=== PATIENT | female | born 1965 | race Caucasian/White ===

== ENCOUNTER → 2016-09-23 | Outpatient (CLI) | payer BC ==
[~2016-09-23] MED LIST: ALBU6.7H INH; ATEN1TAB74 PO; CYCL-36 PO; LORA-474 PO; PRIL20CA PO
--- NOTE | 2016-10-07 11:28 | RSPPFT ---
DATE OF PROCEDURE: 09/23/16 COMMENTS: Spirometry demonstrates an FEV1 of 2.8 at 102% of predicted, FVC of 3.5 at 105%, FEF 25-75 is 96%. Post-bronchodilator study demonstrated mild improvements in the FEV1 and FEF 25-75 suggesting reactive airways. Lung volumes appear unremarkable. Airways resistance is increased. Flow volume loops appear unremarkable. Diffusion capacity is normal. IMPRESSION: 1. Essentially normal spirometry. 2. Mild response to use of bronchodilator suggesting reactive airways. 3. Normal diffusion capacity.
== END ==
LOC: HRSP 09:13
PROVIDERS: ATTEND Internal Medicine
DX: J45.909 Unspecified asthma, uncomplicated (principal)
CPT/HCPCS: 94060; 94726; 94729